=== PATIENT | male | born 1950 | race African-American/Black ===

== ENCOUNTER 2018-02-07 06:53 | Observation (INO) ==
[2018-02-07] MEDS ORDERED: NITROGLYCERIN 2% OINT 1 INCH/GM PACK TOP STA (07:38)
[2018-02-07] MEDS ORDERED: ASPIRIN 325 MG TABLET PO STA (07:38)
[2018-02-07 07:49] LABS: Apearance,Urine CLEAR (Clear); Bilirubin,Urine Negative (Negative); Blood, Urine Small mg/dL (Negative); Glucose,Urine (UA) >=500 mg/dL (Negative); Ketones,Urine Negative (Negative); Nitrite,Urine Negative (Negative); Protein,Urine Negative; RBC,Urine <1 /HPF (0-4); Squamous Epithelial Cell,Urine Occasional /HPF (0-10); Urine Color Straw (Yellow); Urine Specific Gravity 1.024 (1.001-1.035); Urine Urobilinogen < 2.0 EU/DL (0.2-1.0); WBC,Urine 1 /HPF (0-6)
[2018-02-07 08:22] LABS: Barbiturates Screen,Urine Negative (Negative); Benzodiazepines Screen,Urine Negative (Negative); Cannabinoid Screen,Urine Negative (Negative); Opiate Screen,Urine Negative (Negative); Phencyclidine Screen,Urine Negative (Negative)
[2018-02-07] MEDS ORDERED: GLUCAGON 1 MG VIAL IM PRN ×2 (08:28→15:46)
[2018-02-07] MEDS ORDERED: DEXTROSE 50% 25 GM/50 ML VIAL IV PRN ×2 (08:28→15:46)
[2018-02-07 08:44] LABS: Basophils % 0.3 % (0.0-0.8); Eosinophils # 0.2 10*3/uL (0.0-0.87); Eosinophils % 2.9 % (0.00-10.9); Hematocrit 44.1 VOL% (42.0-52.0); Hemoglobin 13.3 GM/DL (14.0-18.0); Immature Granulocytes % 0.3 %; Immature Granulocytes Absolute 0.02 #; Lymphocytes # 1.4 10*3/uL (1.4-4.0); Lymphocytes % 22.5 % (21.2-54.2); Mean Corpuscular HGB Conc 30.2 GM/DL (32-36); Mean Corpuscular Hemoglobin 22 PG (27-34); Mean Corpuscular Volume 74.2 FL (87-102); Mean Platelet Volume 11.5 FL (9.6-12.0); Monocytes # 0.5 10*3/uL (0.11-0.8); Monocytes % 7.7 % (1.7-12.7); Neutrophils # 4.1 10*3/uL (1.4-7.4); Neutrophils % 66.3 % (38.7-73.9); Platelet Count 223 T/CUMM (130-400); Red Blood Count 5.94 MC/CUMM (3.8-5.5); Red Cell Distribution Width 14.5 % (9.3-17.3); White Blood Count 6.1 T/CUMM (4-12)
[2018-02-07 08:46] LABS: Albumin 3.8 G/DL (3.4-5.0); Bilirubin,Total 0.4 MG/DL (0.2-1.0); Calcium 9.2 MG/DL (8.5-10.1); Osmolality,Calculated 283.7 MOS/KG (273-304); Total Protein 7.4 G/DL (6.4-8.3)
[2018-02-07] MEDS ORDERED: MORPHINE 4 MG/1 ML VIAL IV STA (11:07)
[2018-02-07] MEDS ORDERED: ONDANSETRON 4 MG/2 ML VIAL IV STA (11:07)
[2018-02-07] MEDS ORDERED: ACETAMINOPHEN 325 MG TABLET PO PRN (14:37)
[2018-02-07] MEDS ORDERED: ONDANSETRON 4 MG/2 ML VIAL IV PRN (14:37)
[2018-02-07] MEDS ORDERED: CLORAZEPATE 3.75 MG TABLET PO ONE (14:44)
[2018-02-07] MEDS ORDERED: LEVOFLOXACIN INJ 500 MG in PREMIX 1 EACH IV SCH (16:00)
[2018-02-07] MEDS ORDERED: SODIUM PHOSPHATE ENEMA 133 ML BOTTLE RECTAL ONE (16:11)
[2018-02-07] MEDS: SODIUM CHLORIDE 0.9% 1,000 ML IV SCH (16:57)
[2018-02-07] MEDS: INSULIN LISPRO 100 UNIT/ML SUBCUT SCH ×2 (16:58→20:28)
[2018-02-07] MEDS: SERTRALINE 25 MG TABLET PO SCH (16:58)
[2018-02-07] MEDS: metFORMIN 500 MG TABLET PO SCH (16:58)
[2018-02-07] MEDS: QUEtiapine 25 MG TABLET PO SCH ×2 (19:04→20:28)
[2018-02-07] MEDS: TAMSULOSIN 0.4 MG CAPSULE PO SCH (20:28)
[2018-02-07] MEDS: DOCUSATE SODIUM 100 MG CAPSULE PO SCH (20:28)
[2018-02-07] MEDS ORDERED: FINASTERIDE 5 MG TABLET PO SCH (21:00)
[2018-02-07] MEDS ORDERED: TAMSULOSIN 0.4 MG CAPSULE PO SCH (21:00)
[2018-02-07] MEDS ORDERED: LORazepam 2 MG/1 ML VIAL IV PRN (22:34)
[2018-02-08] MEDS ORDERED: ASPIRIN EC 81 MG TABLET PO SCH (09:00)
[2018-02-08] MEDS ORDERED: ATORVASTATIN 20 MG TABLET PO SCH (09:00)
[2018-02-08] MEDS ORDERED: PANTOPRAZOLE 40 MG TABLET PO SCH (09:00)
[2018-02-08] MEDS ORDERED: Empagliflozin [Jardiance] 25 MG PO SCH (09:00)
[2018-02-08] MEDS ORDERED: LISINOPRIL 20 MG TABLET PO SCH (09:00)
[2018-02-08] MEDS ORDERED: amLODIPine 5 MG TABLET PO SCH (09:00)
[2018-02-08] MEDS ORDERED: INSULIN GLARGINE 100 UNIT/ML SUBCUT SCH (10:00)
[2018-02-08] MEDS: INSULIN LISPRO 100 UNIT/ML SUBCUT SCH ×2 (12:00→13:35)
[2018-02-08] MEDS: metFORMIN 500 MG TABLET PO SCH (12:01)
[2018-02-08] MEDS: DOCUSATE SODIUM 100 MG CAPSULE PO SCH (12:01)
[2018-02-08] MEDS: SERTRALINE 25 MG TABLET PO SCH (12:02)
[2018-02-08] MEDS: TAMSULOSIN 0.4 MG CAPSULE PO SCH (12:02)
[2018-02-08] MEDS: SODIUM CHLORIDE 0.9% 1,000 ML IV SCH (12:02)
[2018-02-08 13:28] VITALS: BP 116/54
== END 2018-02-08 13:36 | disposition home health service (06) ==
LOC: EDUNIT# → EDBD → N.ED 06:53 → N.EDINP 06:53 → N.5E 15:43
PROVIDERS: ADMIT Family Medicine; ATTEND Family Medicine

== ENCOUNTER 2019-07-12 07:48 | Inpatient (IN) ==
[2019-07-12 08:19] LABS: Apearance,Urine CLEAR (Clear); Bilirubin,Urine Negative (Negative); Blood, Urine Moderate mg/dL (Negative); Glucose,Urine (UA) >=500 mg/dL (Negative); Hyaline Casts,Urine 1 /LPF (0-3); Ketones,Urine 20 mg/dL (Negative); Mucus,Urine Occasional /LPF (Occasional); Nitrite,Urine Negative (Negative); Protein,Urine 100 MG/DL; RBC,Urine 4 /HPF (0-4); Squamous Epithelial Cell,Urine Occasional /HPF (0-10); Urine Color Yellow (Yellow); Urine Specific Gravity 1.025 (1.001-1.035); Urine Urobilinogen < 2.0 EU/DL (0.2-1.0); WBC,Urine 2 /HPF (0-6)
[2019-07-12] MEDS ORDERED: PANTOPRAZOLE 40 MG VIAL IV STA (08:44)
[2019-07-12] MEDS ORDERED: ALUM/MAG/SIMETH/LIDO VISC 1:1 30 ML BOTTLE PO STA (08:44)
[2019-07-12 08:58] LABS: Basophils % 0.2 % (0.0-0.8); Hematocrit 38.9 VOL% (42.0-52.0); Hemoglobin 11.7 GM/DL (14.0-18.0); Immature Granulocytes % 0.5 %; Immature Granulocytes Absolute 0.03 #; Lymphocytes # 0.5 10*3/uL (1.4-4.0); Lymphocytes % 7.8 % (21.2-54.2); Mean Corpuscular HGB Conc 30.1 GM/DL (32-36); Mean Corpuscular Volume 72.8 FL (87-102); Mean Platelet Volume 11.7 FL (9.6-12.0); Monocytes % 6.3 % (1.7-12.7); Neutrophils % 85.2 % (38.7-73.9); Platelet Count 169 T/CUMM (130-400); Red Blood Count 5.34 MC/CUMM (3.8-5.5); Red Cell Distribution Width 14.6 % (9.3-17.3); White Blood Count 6.2 T/CUMM (4-12)
[2019-07-12 09:06] LABS: Alanine Aminotransferase 17 U/L (16-61); Albumin 2.5 G/DL (3.4-5.0); Alkaline Phosphatase 66 U/L (45-117); Aspartate Amino Transferase 19 U/L (0-37); Bilirubin,Total < 0.39 MG/DL (0.2-1.0); Blood Urea Nitrogen 11 MG/DL (7-18); Calcium 8.5 MG/DL (8.5-10.1); Estimated Glom Filtration Rate 111 ML/MIN; Glucose 269 MG/DL (74-106); Osmolality,Calculated 269.7 MOS/KG (273-304); Total Protein 6.8 G/DL (6.4-8.3)
[2019-07-12] MEDS ORDERED: AZITHROMYCIN INJ 500 MG in SODIUM CHLORIDE 0.9% 250 ML IV STA (10:51)
[2019-07-12] MEDS ORDERED: DOCUSATE SODIUM 100 MG CAPSULE PO PRN (11:37)
[2019-07-12] MEDS ORDERED: ONDANSETRON 4 MG/2 ML VIAL IV PRN ×2 (11:37→12:24)
[2019-07-12] MEDS ORDERED: GLUCAGON 1 MG VIAL IM PRN (11:37)
[2019-07-12] MEDS ORDERED: DEXTROSE 10% 250 ML BAG IV PRN (11:37)
[2019-07-12 12:04] LABS: Risk Ratio 4.15; Thyroid Stimulating Hormone 0.504 uIU/ml (0.358-3.74)
[2019-07-12 12:22] LABS: Ferritin 581.6 ng/ml (26-388)
[2019-07-12] MEDS ORDERED: HYDROmorphone 2 MG/1 ML VIAL IV PRN (12:24)
[2019-07-12] MEDS ORDERED: SODIUM CHLORIDE 0.9% 1,000 ML IV STA ×2 (12:28→13:10)
[2019-07-12] MEDS ORDERED: cefTRIAXone 1,000 MG in SYRINGE 1 EACH IV SCH (13:00)
[2019-07-12] MEDS: SODIUM CHLORIDE 0.9% 1,000 ML IV SCH (15:14)
[2019-07-12] MEDS ORDERED: hydrALAZINE 20 MG/1 ML VIAL IV PRN (15:22)
[2019-07-12] MEDS: INSULIN LISPRO 100 UNIT/ML SUBCUT SCH ×2 (16:30→22:31)
[2019-07-12] MEDS ORDERED: POLYETHYLENE GLYCOL POWDER 255 GM BOTTLE PO ONE (17:00)
[2019-07-12] MEDS: hydrOXYzine HCL 25 MG TABLET PO PRN (17:28)
[2019-07-12 18:30] LABS: Barbiturates Screen,Urine Negative (Negative); Benzodiazepines Screen,Urine Negative (Negative); Cannabinoid Screen,Urine Negative (Negative); Opiate Screen,Urine Positive (Negative); Phencyclidine Screen,Urine Negative (Negative)
[2019-07-12] MEDS: TAMSULOSIN 0.4 MG CAPSULE PO SCH (20:30)
[2019-07-12] MEDS: metroNIDAZOLE INJ 500 MG in PREMIX 1 EACH IV SCH (20:30)
[2019-07-12] MEDS: ZINC SULFATE 220 MG CAPSULE PO SCH (20:30)
[2019-07-12] MEDS: DOCUSATE SODIUM 100 MG CAPSULE PO SCH (20:30)
[2019-07-12] MEDS: ENOXAPARIN 40 MG/0.4 ML SYRINGE SUBCUT SCH (20:30)
[2019-07-12] MEDS: LEVOFLOXACIN 750 MG TABLET PO SCH (20:30)
[2019-07-12] MEDS: INSULIN GLARGINE 100 UNIT/ML SUBCUT SCH (22:32)
[2019-07-13] MEDS: hydrOXYzine HCL 25 MG TABLET PO PRN ×3 (02:30→22:16)
[2019-07-13] MEDS: SODIUM CHLORIDE 0.9% 1,000 ML IV SCH ×2 (02:31→17:21)
[2019-07-13] MEDS: ACETAMINOPHEN 325 MG TABLET PO PRN (02:40)
[2019-07-13] MEDS: metroNIDAZOLE INJ 500 MG in PREMIX 1 EACH IV SCH ×2 (03:25→12:18)
[2019-07-13 05:22] LABS: Basophils % 0.1 % (0.0-0.8); Hematocrit 37.7 VOL% (42.0-52.0); Hemoglobin 11.4 GM/DL (14.0-18.0); Immature Granulocytes % 0.8 %; Immature Granulocytes Absolute 0.08 #; Lymphocytes # 0.5 10*3/uL (1.4-4.0); Lymphocytes % 4.6 % (21.2-54.2); Mean Corpuscular HGB Conc 30.2 GM/DL (32-36); Mean Corpuscular Volume 73.6 FL (87-102); Mean Platelet Volume 11.8 FL (9.6-12.0); Neutrophils % 91.5 % (38.7-73.9); Platelet Count 163 T/CUMM (130-400); Red Blood Count 5.12 MC/CUMM (3.8-5.5); Red Cell Distribution Width 14.6 % (9.3-17.3); White Blood Count 9.7 T/CUMM (4-12)
[2019-07-13 05:32] LABS: Calcium 8.1 MG/DL (8.5-10.1); Osmolality,Calculated 278.1 MOS/KG (273-304)
[2019-07-13 05:48] LABS: Band Neutrophils 6 % (0-10); Hypochromasia 1+; Lymphocytes 1 % (20-55); Microcytosis Slight; Nucleated Red Blood Cells 1 (0-5); Platelet Estimate Adequate; Segmented Neutrophils 88 % (50-85); Total Cells Counted 100
[2019-07-13] MEDS: ASPIRIN EC 81 MG TABLET PO SCH (08:57)
[2019-07-13] MEDS: DOCUSATE SODIUM 100 MG CAPSULE PO SCH ×2 (08:57→22:12)
[2019-07-13] MEDS: ASCORBIC ACID 500 MG TABLET PO SCH (08:57)
[2019-07-13] MEDS: amLODIPine 5 MG TABLET PO SCH (08:57)
[2019-07-13] MEDS: ATORVASTATIN 40 MG TABLET PO SCH (08:57)
[2019-07-13] MEDS: lisinopriL 20 MG TABLET PO SCH (08:57)
[2019-07-13] MEDS: INSULIN LISPRO 100 UNIT/ML SUBCUT SCH ×4 (08:57→22:12)
[2019-07-13] MEDS: CHOLECALCIFEROL 1,000 UNIT TABLET PO SCH (08:57)
[2019-07-13] MEDS ORDERED: AZITHROMYCIN INJ 500 MG in SODIUM CHLORIDE 0.9% 250 ML IV SCH (09:00)
[2019-07-13] MEDS: INSULIN GLARGINE 100 UNIT/ML SUBCUT SCH (22:12)
[2019-07-13] MEDS: TAMSULOSIN 0.4 MG CAPSULE PO SCH (22:12)
[2019-07-13] MEDS: LEVOFLOXACIN 750 MG TABLET PO SCH (22:12)
[2019-07-13] MEDS: ENOXAPARIN 40 MG/0.4 ML SYRINGE SUBCUT SCH (22:14)
[2019-07-13] MEDS: LORazepam 0.5 MG TABLET PO PRN (23:07)
[2019-07-14 04:52] LABS: Basophils % 0.1 % (0.0-0.8); Eosinophils % 0.1 % (0.00-10.9); Hematocrit 34.3 VOL% (42.0-52.0); Hemoglobin 10.8 GM/DL (14.0-18.0); Immature Granulocytes % 0.9 %; Immature Granulocytes Absolute 0.09 #; Lymphocytes # 0.5 10*3/uL (1.4-4.0); Lymphocytes % 4.8 % (21.2-54.2); Mean Corpuscular HGB Conc 31.5 GM/DL (32-36); Mean Corpuscular Volume 70.9 FL (87-102); Mean Platelet Volume 13.3 FL (9.6-12.0); Monocytes % 3.1 % (1.7-12.7); Platelet Count 178 T/CUMM (130-400); Red Blood Count 4.84 MC/CUMM (3.8-5.5); Red Cell Distribution Width 14.6 % (9.3-17.3)
[2019-07-14 05:39] LABS: Calcium 8.2 MG/DL (8.5-10.1); Osmolality,Calculated 275.2 MOS/KG (273-304)
[2019-07-14 05:53] LABS: Hypochromasia 1+; Lymphocytes 4 % (20-55); Microcytosis Slight; Ovalocytes Slight; Platelet Estimate Adequate; Segmented Neutrophils 93 % (50-85); Total Cells Counted 100
[2019-07-14] MEDS: ATORVASTATIN 40 MG TABLET PO SCH (09:09)
[2019-07-14] MEDS: ASCORBIC ACID 500 MG TABLET PO SCH (09:09)
[2019-07-14] MEDS: ASPIRIN EC 81 MG TABLET PO SCH (09:09)
[2019-07-14] MEDS: DOCUSATE SODIUM 100 MG CAPSULE PO SCH ×2 (09:09→21:13)
[2019-07-14] MEDS: CHOLECALCIFEROL 1,000 UNIT TABLET PO SCH (09:09)
[2019-07-14] MEDS: lisinopriL 20 MG TABLET PO SCH (09:09)
[2019-07-14] MEDS: amLODIPine 5 MG TABLET PO SCH (09:09)
[2019-07-14] MEDS: INSULIN LISPRO 100 UNIT/ML SUBCUT SCH ×4 (09:10→21:16)
[2019-07-14] MEDS ORDERED: POTASSIUM CHLORIDE 20 MEQ TABLET PO ONE (11:00)
[2019-07-14] MEDS: ACETAMINOPHEN 325 MG TABLET PO PRN (13:11)
[2019-07-14] MEDS: TAMSULOSIN 0.4 MG CAPSULE PO SCH (21:15)
[2019-07-14] MEDS: ZINC SULFATE 220 MG CAPSULE PO SCH (21:16)
[2019-07-14] MEDS: ENOXAPARIN 40 MG/0.4 ML SYRINGE SUBCUT SCH (21:16)
[2019-07-14] MEDS: INSULIN GLARGINE 100 UNIT/ML SUBCUT SCH (21:16)
[2019-07-14] MEDS: hydrOXYzine HCL 25 MG TABLET PO PRN (21:18)
[2019-07-14] MEDS: LEVOFLOXACIN 750 MG TABLET PO SCH (21:18)
[2019-07-15 07:16] LABS: Basophils % 0.1 % (0.0-0.8); Eosinophils # 0.1 10*3/uL (0.0-0.87); Eosinophils % 1.4 % (0.00-10.9); Hematocrit 35.9 VOL% (42.0-52.0); Hemoglobin 11.1 GM/DL (14.0-18.0); Immature Granulocytes % 1.1 %; Immature Granulocytes Absolute 0.11 #; Lymphocytes # 0.7 10*3/uL (1.4-4.0); Lymphocytes % 7.6 % (21.2-54.2); Mean Corpuscular HGB Conc 30.9 GM/DL (32-36); Mean Corpuscular Volume 72.4 FL (87-102); Mean Platelet Volume 12.4 FL (9.6-12.0); Monocytes % 4.4 % (1.7-12.7); Neutrophils % 85.4 % (38.7-73.9); Platelet Count 213 T/CUMM (130-400); Red Blood Count 4.96 MC/CUMM (3.8-5.5); Red Cell Distribution Width 14.8 % (9.3-17.3); White Blood Count 9.7 T/CUMM (4-12)
[2019-07-15 07:31] LABS: Calcium 8.1 MG/DL (8.5-10.1); Osmolality,Calculated 273.1 MOS/KG (273-304)
[2019-07-15 08:14] LABS: Platelet Estimate Normal
[2019-07-15 08:15] LABS: Anisocytosis 1+; Macrocytosis Slight; Ovalocytes Few
[2019-07-15] MEDS: amLODIPine 5 MG TABLET PO SCH (08:33)
[2019-07-15] MEDS: ASCORBIC ACID 500 MG TABLET PO SCH (08:33)
[2019-07-15] MEDS: lisinopriL 20 MG TABLET PO SCH (08:33)
[2019-07-15] MEDS: ASPIRIN EC 81 MG TABLET PO SCH (08:34)
[2019-07-15] MEDS: DOCUSATE SODIUM 100 MG CAPSULE PO SCH ×2 (08:34→19:52)
[2019-07-15] MEDS: INSULIN LISPRO 100 UNIT/ML SUBCUT SCH ×4 (08:34→20:48)
[2019-07-15] MEDS: ATORVASTATIN 40 MG TABLET PO SCH (08:35)
[2019-07-15] MEDS: CHOLECALCIFEROL 1,000 UNIT TABLET PO SCH (09:43)
[2019-07-15] MEDS: POLYETHYLENE GLYCOL POWDER 17 GM PACK PO SCH (12:47)
[2019-07-15] MEDS: ENOXAPARIN 40 MG/0.4 ML SYRINGE SUBCUT SCH (19:52)
[2019-07-15] MEDS: LEVOFLOXACIN 750 MG TABLET PO SCH (19:52)
[2019-07-15] MEDS: TAMSULOSIN 0.4 MG CAPSULE PO SCH (19:52)
[2019-07-15] MEDS: INSULIN GLARGINE 100 UNIT/ML SUBCUT SCH (20:00)
[2019-07-16] MEDS: ACETAMINOPHEN 325 MG TABLET PO PRN ×2 (02:46→23:15)
[2019-07-16 05:32] LABS: Basophils % 0.1 % (0.0-0.8); Eosinophils # 0.2 10*3/uL (0.0-0.87); Eosinophils % 2.9 % (0.00-10.9); Hematocrit 34.7 VOL% (42.0-52.0); Hemoglobin 10.5 GM/DL (14.0-18.0); Immature Granulocytes % 0.8 %; Immature Granulocytes Absolute 0.06 #; Lymphocytes # 0.9 10*3/uL (1.4-4.0); Lymphocytes % 11.9 % (21.2-54.2); Mean Corpuscular HGB Conc 30.3 GM/DL (32-36); Mean Platelet Volume 11.6 FL (9.6-12.0); Monocytes % 6.7 % (1.7-12.7); Neutrophils % 77.6 % (38.7-73.9); Platelet Count 257 T/CUMM (130-400); Red Blood Count 4.82 MC/CUMM (3.8-5.5); Red Cell Distribution Width 14.8 % (9.3-17.3); White Blood Count 7.6 T/CUMM (4-12)
[2019-07-16 05:57] LABS: Eosinophils 2 % (0-10); Hypochromasia 1+; Lymphocytes 13 % (20-55); Microcytosis Slight; Ovalocytes Slight; Platelet Estimate Adequate; Segmented Neutrophils 77 % (50-85); Total Cells Counted 100
[2019-07-16 06:02] LABS: Calcium 8.1 MG/DL (8.5-10.1); Ferritin 642.7 ng/ml (26-388); Osmolality,Calculated 270.8 MOS/KG (273-304)
[2019-07-16] MEDS: INSULIN LISPRO 100 UNIT/ML SUBCUT SCH ×4 (08:22→23:51)
[2019-07-16] MEDS: DOCUSATE SODIUM 100 MG CAPSULE PO SCH ×3 (09:08→21:30)
[2019-07-16] MEDS: ASPIRIN EC 81 MG TABLET PO SCH (09:08)
[2019-07-16] MEDS: ASCORBIC ACID 500 MG TABLET PO SCH (09:09)
[2019-07-16] MEDS: lisinopriL 20 MG TABLET PO SCH (09:09)
[2019-07-16] MEDS: ATORVASTATIN 40 MG TABLET PO SCH (09:09)
[2019-07-16] MEDS: amLODIPine 5 MG TABLET PO SCH (09:09)
[2019-07-16] MEDS: POLYETHYLENE GLYCOL POWDER 17 GM PACK PO SCH ×2 (09:09→09:21)
[2019-07-16] MEDS: CHOLECALCIFEROL 1,000 UNIT TABLET PO SCH (09:15)
[2019-07-16] MEDS: ENOXAPARIN 40 MG/0.4 ML SYRINGE SUBCUT SCH (21:30)
[2019-07-16] MEDS: LORazepam 0.5 MG TABLET PO PRN (21:30)
[2019-07-16] MEDS: ZINC SULFATE 220 MG CAPSULE PO SCH (21:30)
[2019-07-16] MEDS: INSULIN GLARGINE 100 UNIT/ML SUBCUT SCH (21:30)
[2019-07-16] MEDS: LEVOFLOXACIN 750 MG TABLET PO SCH (21:30)
[2019-07-16] MEDS: TAMSULOSIN 0.4 MG CAPSULE PO SCH (21:30)
[2019-07-16] MEDS: hydrOXYzine HCL 25 MG TABLET PO PRN (23:15)
[2019-07-17 06:51] LABS: Basophils % 0.2 % (0.0-0.8); Eosinophils # 0.2 10*3/uL (0.0-0.87); Eosinophils % 3.5 % (0.00-10.9); Hematocrit 36.6 VOL% (42.0-52.0); Hemoglobin 11.3 GM/DL (14.0-18.0); Immature Granulocytes % 1.4 %; Immature Granulocytes Absolute 0.09 #; Lymphocytes # 0.7 10*3/uL (1.4-4.0); Lymphocytes % 10.9 % (21.2-54.2); Mean Corpuscular HGB Conc 30.9 GM/DL (32-36); Mean Corpuscular Volume 71.6 FL (87-102); Mean Platelet Volume 12.1 FL (9.6-12.0); Monocytes % 8.7 % (1.7-12.7); Neutrophils % 75.3 % (38.7-73.9); Platelet Count 249 T/CUMM (130-400); Red Blood Count 5.11 MC/CUMM (3.8-5.5); Red Cell Distribution Width 14.6 % (9.3-17.3); White Blood Count 6.6 T/CUMM (4-12)
[2019-07-17 07:33] LABS: Calcium 7.9 MG/DL (8.5-10.1); Ferritin 587.3 ng/ml (26-388); Osmolality,Calculated 269.4 MOS/KG (273-304)
[2019-07-17 08:05] LABS: Hypochromasia Slight; Platelet Estimate Adequate
[2019-07-17] MEDS: lisinopriL 20 MG TABLET PO SCH (08:50)
[2019-07-17] MEDS: CHOLECALCIFEROL 1,000 UNIT TABLET PO SCH (08:50)
[2019-07-17] MEDS: ATORVASTATIN 40 MG TABLET PO SCH (08:50)
[2019-07-17] MEDS: ASPIRIN EC 81 MG TABLET PO SCH (08:50)
[2019-07-17] MEDS: ASCORBIC ACID 500 MG TABLET PO SCH (08:50)
[2019-07-17] MEDS: amLODIPine 5 MG TABLET PO SCH (08:50)
[2019-07-17] MEDS: INSULIN LISPRO 100 UNIT/ML SUBCUT SCH ×5 (08:55→23:43)
[2019-07-17] MEDS: DOCUSATE SODIUM 100 MG CAPSULE PO SCH ×2 (09:54→21:00)
[2019-07-17] MEDS: POLYETHYLENE GLYCOL POWDER 17 GM PACK PO SCH (09:55)
[2019-07-17] MEDS: INSULIN GLARGINE 100 UNIT/ML SUBCUT SCH (21:00)
[2019-07-17] MEDS: TAMSULOSIN 0.4 MG CAPSULE PO SCH (21:00)
[2019-07-17] MEDS: LEVOFLOXACIN 750 MG TABLET PO SCH (21:00)
[2019-07-17] MEDS: ENOXAPARIN 40 MG/0.4 ML SYRINGE SUBCUT SCH (21:00)
[2019-07-18 05:28] LABS: Basophils % 0.3 % (0.0-0.8); Eosinophils # 0.2 10*3/uL (0.0-0.87); Eosinophils % 2.7 % (0.00-10.9); Hematocrit 36.1 VOL% (42.0-52.0); Immature Granulocytes % 0.9 %; Immature Granulocytes Absolute 0.07 #; Lymphocytes # 0.8 10*3/uL (1.4-4.0); Lymphocytes % 10.1 % (21.2-54.2); Mean Corpuscular HGB Conc 30.5 GM/DL (32-36); Mean Corpuscular Volume 72.1 FL (87-102); Mean Platelet Volume 11.9 FL (9.6-12.0); Platelet Count 266 T/CUMM (130-400); Red Blood Count 5.01 MC/CUMM (3.8-5.5); Red Cell Distribution Width 14.6 % (9.3-17.3); White Blood Count 7.7 T/CUMM (4-12)
[2019-07-18 05:56] LABS: Calcium 8.1 MG/DL (8.5-10.1); Ferritin 522.8 ng/ml (26-388); Osmolality,Calculated 274.1 MOS/KG (273-304)
[2019-07-18 07:44] LABS: Eosinophils 3 % (0-10); Lymphocytes 14 % (20-55); Segmented Neutrophils 76 % (50-85); Total Cells Counted 100
[2019-07-18 07:45] LABS: Hypochromasia 1+; Microcytosis Slight; Platelet Estimate Adequate
[2019-07-18] MEDS ORDERED: methylPREDNISolone SOD SUC 125 MG/2 ML VIAL IV ONE (08:00)
[2019-07-18] MEDS ORDERED: diphenhydrAMINE 50 MG/1 ML VIAL IV ONE (08:00)
[2019-07-18] MEDS: INSULIN LISPRO 100 UNIT/ML SUBCUT SCH ×4 (10:05→21:27)
[2019-07-18] MEDS: amLODIPine 5 MG TABLET PO SCH (10:05)
[2019-07-18] MEDS: ASCORBIC ACID 500 MG TABLET PO SCH (10:05)
[2019-07-18] MEDS: CHOLECALCIFEROL 1,000 UNIT TABLET PO SCH (10:05)
[2019-07-18] MEDS: ATORVASTATIN 40 MG TABLET PO SCH (10:10)
[2019-07-18] MEDS: DOCUSATE SODIUM 100 MG CAPSULE PO SCH ×2 (10:10→21:26)
[2019-07-18] MEDS: ASPIRIN EC 81 MG TABLET PO SCH (10:10)
[2019-07-18] MEDS: POLYETHYLENE GLYCOL POWDER 17 GM PACK PO SCH (11:14)
[2019-07-18] MEDS: LEVOFLOXACIN 750 MG TABLET PO SCH (21:26)
[2019-07-18] MEDS: TAMSULOSIN 0.4 MG CAPSULE PO SCH (21:26)
[2019-07-18] MEDS: INSULIN GLARGINE 100 UNIT/ML SUBCUT SCH (21:27)
[2019-07-18] MEDS: ENOXAPARIN 40 MG/0.4 ML SYRINGE SUBCUT SCH (21:27)
[2019-07-19] MEDS: LORazepam 0.5 MG TABLET PO PRN (03:53)
[2019-07-19 05:35] LABS: Basophils % 0.1 % (0.0-0.8); Eosinophils # 0.1 10*3/uL (0.0-0.87); Eosinophils % 0.7 % (0.00-10.9); Hematocrit 33.6 VOL% (42.0-52.0); Hemoglobin 10.6 GM/DL (14.0-18.0); Immature Granulocytes % 1.2 %; Lymphocytes # 0.9 10*3/uL (1.4-4.0); Lymphocytes % 10.6 % (21.2-54.2); Mean Corpuscular HGB Conc 31.5 GM/DL (32-36); Mean Corpuscular Volume 69.9 FL (87-102); Monocytes % 9.5 % (1.7-12.7); Neutrophils % 77.9 % (38.7-73.9); Platelet Count 339 T/CUMM (130-400); Red Blood Count 4.81 MC/CUMM (3.8-5.5); Red Cell Distribution Width 14.3 % (9.3-17.3); White Blood Count 8.1 T/CUMM (4-12)
[2019-07-19 06:10] LABS: Calcium 8.3 MG/DL (8.5-10.1); Osmolality,Calculated 278.2 MOS/KG (273-304)
[2019-07-19] MEDS: amLODIPine 5 MG TABLET PO SCH (08:29)
[2019-07-19] MEDS: ASPIRIN EC 81 MG TABLET PO SCH (08:29)
[2019-07-19] MEDS: ASCORBIC ACID 500 MG TABLET PO SCH (08:29)
[2019-07-19] MEDS: ATORVASTATIN 40 MG TABLET PO SCH (08:29)
[2019-07-19] MEDS: DOCUSATE SODIUM 100 MG CAPSULE PO SCH (08:29)
[2019-07-19] MEDS: POLYETHYLENE GLYCOL POWDER 17 GM PACK PO SCH ×2 (08:30→08:32)
[2019-07-19] MEDS: CHOLECALCIFEROL 1,000 UNIT TABLET PO SCH (08:30)
[2019-07-19] MEDS: INSULIN LISPRO 100 UNIT/ML SUBCUT SCH ×2 (09:48→12:22)
[2019-07-19 10:11] VITALS: BP 151/86
[2019-07-19] MEDS ORDERED: INSULIN GLARGINE 100 UNIT/ML SUBCUT SCH (21:00)
== END 2019-07-19 15:46 | DRG 177 ==
LOC: EDUNIT# → N.ED 07:48 → SUATTDRO 11:34 → N.EDINP 11:34 → N.2E 13:40 → N.2W 07-15 12:06
PROVIDERS: ADMIT Family Medicine; ATTEND Internal Medicine